=== PATIENT | female | born 1945 | race Caucasian/White ===

== ENCOUNTER → 2024-10-20 | Outpatient (CLI) | payer MEDICARE, SELFPAY | END | disposition home or self-care (01) | LOC: SLDO 11:43 | PROVIDERS: PCP Nurse Practitioner Family; Referring Provider Nurse Practitioner Family; Visit Provider Nurse Practitioner Family | DX: N30.01 Acute cystitis with hematuria (principal) | CPT/HCPCS: 87077; 87086; 87186 ==

== ENCOUNTER → 2024-12-10 | Outpatient (CLI) | payer MEDICARE, SELFPAY ==
--- NOTE | 2024-12-10 10:00 | XR_ITS ---
Examination: Breast ultrasound complete, bilateral Date and time of exam: December 10, 2024 1036 hours INDICATIONS: Mammogram October 19, 2024 8 mm focal asymmetry upper breast, strong family history breast cancer, mother, sister Technique: Real-time grayscale ultrasonographic imaging bilateral breasts, including all 4 quadrants as well as nipple retroareolar and axillary regions. Findings: Sonographic images right breast No cystic or solid mass Sonographic images left breast 3:00 oval mass hyperechoic 7 x 4 x 8 mm IMPRESSION: BI-RADS Category 3: Probably benign findings One additional 6 month left breast sonogram follow-up is needed to document stability of probably benign lipoma in 3:00 position left breast
--- NOTE | 2024-12-10 11:00 | XR_ITS ---
Examination: Diagnostic digital mammography, unilateral, right Computer aided detection 3-D breast Tomosynthesis, unilateral Date and time of exam: December 10, 2024 1052 hours INDICATIONS: Mammogram October 19, 2024 8 mm focal asymmetry outer right breast CC view 4.5 cm from the nipple Technique: Nonmagnified MLO, CC views of the right breast have been obtained, reconstructed from 3-D Tomosynthesis images. R2 computer aided detection program utilized for evaluation of suspicious masses and/or abnormal calcifications. 3-D Tomosynthesis images obtained. Findings: Scattered areas of fibroglandular density Focal asymmetry remains outer right breast CC view anterior depth, probably benign Impression: BI-RADS category 3: Probably benign findings One additional 6 month right mammogram follow-up is needed to document stability of focal asymmetry described above
== END | disposition home or self-care (01) ==
LOC: CDIM 10:03
PROVIDERS: PCP Family Medicine; Referring Provider Nurse Practitioner Family; Visit Provider Nurse Practitioner Family
DX: R92.331 Mammographic heterogeneous density, right breast (principal); N64.89 Other specified disorders of breast; N63.25 Unspecified lump in the left breast, overlapping quadrants
CPT/HCPCS: 76641; 77061; 77065; G0279